=== PATIENT | male | born 1950 ===

== ENCOUNTER 2019-06-23 11:57 | Inpatient (IN) | payer MEDICARE ==
[~2019-06-23] VITALS: Ht 185.4 cm; Wt 87.2 kg
[~2019-06-23 11:57] MED LIST: ALPR.5 PO; ALPR1; ARIP20 PO; Abilify2 MG PO; CLON.5 PO; Carbidopa-Levo1 EAC8 PO; DOCSEN PO; DONE5 PO; DULO60 PO; GABA300 PO; GLIP10 PO; INVOKANA100 MG PO; LISI10 PO; LISI5 PO; MELOXICAM PO; METF500 PO; METH10 PO; MORP30ER PO; PARO30 PO; PYRI100 PO; SITA25T2 PO; TIOT18 INH; TRAZ100 PO; TRAZ50 PO; TRIHEXYPHENIDYL PO
[2019-06-23 12:36] LABS: BASOPHILS ABSOLUTE AUTO 0.06 K/mm3 (0.00-0.23); BASOPHILS PERCENT AUTO 0 % (0-2); EOSINOPHILS PERCENT AUTO 0 % (0-6); Hematocrit 51.5 % (37.0-53.0); IMMATURE GRAN ABSOLUTE AUTO 0.05 K/mm3 (0.00-0.10); IMMATURE GRAN PERCENT AUTO 0 % (0-1); LYMPHOCYTES ABSOLUTE AUTO 0.73 K/mm3 (0.84-5.20); LYMPHOCYTES PERCENT AUTO 5 % (21-46); MONOCYTES ABSOLUTE AUTO 0.73 K/mm3 (0.16-1.47); MONOCYTES PERCENT AUTO 5 % (4-13); Mean Corpuscular HGB 28.6 pg (26.0-34.0); Mean Corpuscular HGB Conc 31.1 g/dL (31.5-36.5); Mean Corpuscular Volume 92 fL (80-100); NEUTROPHILS ABSOLUTE AUTO 14.15 K/mm3 (1.96-9.15); NEUTROPHILS PERCENT AUTO 90 % (41-73); Platelet Count 289 K/mm3 (150-400); RDW Coefficient Variation 13.5 % (11.7-14.2); RDW Standard Deviation 46.1 fL (35.1-46.3); White Blood Cell Count 15.72 K/mm3 (4.00-11.30)
[2019-06-23 12:54] LABS: Alanine Aminotransfer (ALT/SGP 21 U/L (12-78); Albumin, Blood 2.8 g/dL (3.4-5.0); Albumin/Globulin Ratio 0.5 (0.8-1.8); Alk Phos 101 U/L (50-136); Anion Gap 15 mmol/L (6-16); Aspartate Aminotrans (AST/SGOT 74 U/L (12-37); Bilirubin, Total 1.4 mg/dL (0.1-1.0); Blood Urea Nitrogen 26 mg/dL (8-24); Bun/Creatinine Ratio 29.8 (12.0-20.0); CO2, Blood 21 mmol/L (21-32); Calcium, Blood 9.5 mg/dL (8.5-10.1); Chloride, Blood 97 mmol/L (98-108); Creatinine, Blood 0.87 mg/dL (0.60-1.20); Glomerular Filtration Rate >60 (60-); Glucose, Blood 126 mg/dL (70-99); Potassium, Blood 4.3 mmol/L (3.5-5.5); Sodium, Blood 133 mmol/L (136-145); Total Protein, Blood 8.8 g/dL (6.4-8.2)
[2019-06-23 13:20] LABS: Source, Urine Clean Catch
[2019-06-23 13:32] LABS: Bilirubin, Urine Neg (Neg); Blood, Urine 2+ (Neg); Glucose Qualitative, Urine 4+ (Neg); Ketones, Urine 4+ (Neg); Leukocyte Esterase, Urine 2+ (Neg); Nitrite, Urine Pos (Neg); Protein, Urine 2+ (Neg); Specific Gravity, Urine 1.015 (1.003-1.022); Urobilinogen, Urine NORM (Normal)
[2019-06-23 13:44] LABS: Appearance, Urine Hazy (Clear); Color, Urine Yellow (P-Yellow)
[2019-06-23 13:47] LABS: Red Blood Cells, Urine 0-2 /hpf (0-2); Squamous Epithelial Cells Rare /hpf (Few)
[2019-06-23 13:49] LABS: Bacteria Rare /hpf
[2019-06-23] MEDS ORDERED: Prinivil10 MG PO (13:57)
[2019-06-23] MEDS ORDERED: VITAMIN B PO (13:57)
[2019-06-23] MEDS ORDERED: ARIP10 PO (13:57)
[2019-06-23] MEDS ORDERED: JARDIANCE25 MG PO (13:58)
[2019-06-23] MEDS ORDERED: Citalopram HBr20 MG PO (13:58)
[2019-06-23] MEDS ORDERED: DONE5 PO (13:59)
[2019-06-23] MEDS ORDERED: TRAZ50 PO (13:59)
[2019-06-23] MEDS ORDERED: ONE DAILY FOR1 EAC1 PO (13:59)
[2019-06-23] MEDS ORDERED: CLON.5 PO (13:59)
[2019-06-23] MEDS ORDERED: MELO7.5 PO (13:59)
[2019-06-23] MEDS ORDERED: PRAM.5 PO (14:00)
[2019-06-23] MEDS ORDERED: POTCHL20ER PO (14:00)
[2019-06-23] MEDS ORDERED: SINEMET 25-1001 EACH PO (14:01)
[2019-06-23] MEDS ORDERED: TIOT18 INH (14:01)
[2019-06-23] MEDS ORDERED: Nortriptyline H50 MG PO (14:01)
[2019-06-23] MEDS ORDERED: Janumet 50-5001 EACH PO (14:01)
[2019-06-23] MEDS ORDERED: MORP30ER PO (14:01)
[2019-06-23] MEDS ORDERED: SENN187 PO (14:02)
[2019-06-23] MEDS ORDERED: GABA300 PO (14:02)
[2019-06-23] MEDS ORDERED: ALPR1 PO (14:02)
[2019-06-23 18:15] LABS: International Normalized Ratio 1.34; Prothrombin Time Results 13.8 Sec (9.7-11.5)
--- NOTE | 2019-06-23 18:45 | NUR ---
REPORT FROM [facility] AN. IN ER.
--- NOTE | 2019-06-23 18:55 | NUR ---
PT TO ROOM PCU 15 VIA STRETCHER. PT ABLE TO STAND AND SIT ON NEW BED. PT ALERT AND ORIENTED. SPOUSE TO ROOM WITH PT. VSS. ONCOMING RN TO DO PT ADMIT.
--- NOTE | 2019-06-24 03:53 | NUR ---
PT BP STABLE; HR 126-140; TOUCHING 150 WHEN AMBULATING TO BATHROOM; PROVIDER NOTIFIED; NEW ORDER FOR NS 500ML GIVEN
[2019-06-24 05:04] LABS: BASOPHILS ABSOLUTE AUTO 0.04 K/mm3 (0.00-0.23); BASOPHILS PERCENT AUTO 0 % (0-2); EOSINOPHILS PERCENT AUTO 0 % (0-6); Hemoglobin 14.9 g/dL (13.5-17.5); IMMATURE GRAN ABSOLUTE AUTO 0.07 K/mm3 (0.00-0.10); IMMATURE GRAN PERCENT AUTO 0 % (0-1); LYMPHOCYTES ABSOLUTE AUTO 1.47 K/mm3 (0.84-5.20); LYMPHOCYTES PERCENT AUTO 9 % (21-46); MONOCYTES ABSOLUTE AUTO 1.01 K/mm3 (0.16-1.47); MONOCYTES PERCENT AUTO 6 % (4-13); Mean Corpuscular HGB 28.8 pg (26.0-34.0); Mean Corpuscular HGB Conc 31.7 g/dL (31.5-36.5); Mean Corpuscular Volume 91 fL (80-100); Mean Platelet Volume 10.1 fL (9.1-12.4); NEUTROPHILS ABSOLUTE AUTO 14.48 K/mm3 (1.96-9.15); NEUTROPHILS PERCENT AUTO 85 % (41-73); Platelet Count 253 K/mm3 (150-400); RDW Coefficient Variation 13.8 % (11.7-14.2); RDW Standard Deviation 46.2 fL (35.1-46.3); Red Blood Cell Count 5.18 M/mm3 (4.30-5.90); White Blood Cell Count 17.07 K/mm3 (4.00-11.30)
[2019-06-24 05:21] LABS: Anion Gap 12 mmol/L (6-16); Blood Urea Nitrogen 27 mg/dL (8-24); CO2, Blood 22 mmol/L (21-32); Chloride, Blood 96 mmol/L (98-108); Creatinine, Blood 0.82 mg/dL (0.60-1.20); Glomerular Filtration Rate >60 (60-); Glucose, Blood 126 mg/dL (70-99); Potassium, Blood 4.6 mmol/L (3.5-5.5); Sodium, Blood 130 mmol/L (136-145)
--- NOTE | 2019-06-24 07:54 | NUR ---
SHIFT SUMMARY PT A&O; PT ON RA O2 SATS >93; PT DENIES CHEST PAIN; C/O UPPER QUADRANT PAIN; PT HR CONSISTENTLY 120'S TO 130'S; PT NPO CURRENTLY FOR CT GUIDED ABSCESS DRAINAGE; CALL LIGHT IN REACH; BED IN LOWEST POSITION; REPORT GIVEN TO DAY SHIFT RN
--- NOTE | 2019-06-24 11:34 | NUR ---
CT QUIDED DRAIN PT RETURNED FROM CT. AWAKE AND ALERT. EXPRESSED [id number] WITH THE EXPERIENCE. LEFT POSTERIOR BACK IS A DRAIN LINE ATACHED TO A COLLECTION BAG. NO FLUID IN TUBING YET. VSS. AT BEDSIDE. CONTINUE POT.
[2019-06-24 14:07] LABS: BASOPHILS ABSOLUTE AUTO 0.06 K/mm3 (0.00-0.23); BASOPHILS PERCENT AUTO 0 % (0-2); EOSINOPHILS PERCENT AUTO 0 % (0-6); Hematocrit 47.2 % (37.0-53.0); IMMATURE GRAN ABSOLUTE AUTO 0.15 K/mm3 (0.00-0.10); IMMATURE GRAN PERCENT AUTO 1 % (0-1); LYMPHOCYTES ABSOLUTE AUTO 1.03 K/mm3 (0.84-5.20); LYMPHOCYTES PERCENT AUTO 5 % (21-46); MONOCYTES ABSOLUTE AUTO 1.47 K/mm3 (0.16-1.47); MONOCYTES PERCENT AUTO 7 % (4-13); Mean Corpuscular HGB 28.6 pg (26.0-34.0); Mean Corpuscular HGB Conc 31.8 g/dL (31.5-36.5); Mean Corpuscular Volume 90 fL (80-100); Mean Platelet Volume 9.7 fL (9.1-12.4); NEUTROPHILS ABSOLUTE AUTO 17.23 K/mm3 (1.96-9.15); NEUTROPHILS PERCENT AUTO 86 % (41-73); Platelet Count 246 K/mm3 (150-400); RDW Coefficient Variation 13.7 % (11.7-14.2); RDW Standard Deviation 45.8 fL (35.1-46.3); Red Blood Cell Count 5.25 M/mm3 (4.30-5.90); White Blood Cell Count 19.94 K/mm3 (4.00-11.30)
--- NOTE | 2019-06-24 15:10 | NUR ---
echocardiogram complete
--- NOTE | 2019-06-24 15:26 | NUR ---
LEFT POSTERIOR BACK DRAIN DRAIN BAG NOTED TO HAVE BROWNISH,RED THICK CHUNKY FLID DRAINING FROM HIS BACK. PT VERY SURPRISED AT THE LOOK OF THE FLUID. CONTINUE POT.
--- NOTE | 2019-06-25 02:28 | NUR ---
06/24/19 PT HEART RATE 128; DENIES CHEST PAIN OR SOB.
[2019-06-25 03:46] LABS: BASOPHILS ABSOLUTE AUTO 0.05 K/mm3 (0.00-0.23); BASOPHILS PERCENT AUTO 0 % (0-2); EOSINOPHILS PERCENT AUTO 0 % (0-6); Hematocrit 40.5 % (37.0-53.0); Hemoglobin 13.2 g/dL (13.5-17.5); IMMATURE GRAN ABSOLUTE AUTO 0.15 K/mm3 (0.00-0.10); IMMATURE GRAN PERCENT AUTO 1 % (0-1); LYMPHOCYTES ABSOLUTE AUTO 1.04 K/mm3 (0.84-5.20); LYMPHOCYTES PERCENT AUTO 5 % (21-46); MONOCYTES ABSOLUTE AUTO 1.33 K/mm3 (0.16-1.47); MONOCYTES PERCENT AUTO 6 % (4-13); Mean Corpuscular HGB 28.7 pg (26.0-34.0); Mean Corpuscular HGB Conc 32.6 g/dL (31.5-36.5); Mean Corpuscular Volume 88 fL (80-100); Mean Platelet Volume 9.8 fL (9.1-12.4); NEUTROPHILS PERCENT AUTO 88 % (41-73); Platelet Count 250 K/mm3 (150-400); RDW Coefficient Variation 13.6 % (11.7-14.2); RDW Standard Deviation 43.8 fL (35.1-46.3); White Blood Cell Count 21.87 K/mm3 (4.00-11.30)
[2019-06-25 04:07] LABS: Albumin, Blood 1.9 g/dL (3.4-5.0); Anion Gap 9 mmol/L (6-16); Blood Urea Nitrogen 22 mg/dL (8-24); Bun/Creatinine Ratio 37.3 (12.0-20.0); CO2, Blood 23 mmol/L (21-32); Calcium, Blood 8.4 mg/dL (8.5-10.1); Chloride, Blood 103 mmol/L (98-108); Creatinine, Blood 0.59 mg/dL (0.60-1.20); Glomerular Filtration Rate >60 (60-); Glucose, Blood 118 mg/dL (70-99); Potassium, Blood 4.1 mmol/L (3.5-5.5); Sodium, Blood 135 mmol/L (136-145)
--- NOTE | 2019-06-25 06:03 | NUR ---
SHIFT SUMMARY: 68 Y/O MALE RESTED COMFORTABLY ALL SHIFT; DENIES PAIN OR NAUSEA; NEPHROSTOMY DRAIN LEFT FLANK DRY AND INTACT WITH OUTPUT 20ML BROWN FLUID; ALERT AND ORIENTED X 4; BED LOW POSITION WITH CALL LIGHT AT SIDE.
--- NOTE | 2019-06-25 12:46 | NUR ---
Dr. Norton called and confirmed that it is okay to give lovenox SC.
--- NOTE | 2019-06-25 18:20 | NUR ---
Pt called this RN into room complaining of new onset R abd tenderness to the R outer abd. upon palp, pt guarding and tender to abd. Pt states "I feel bloated". Pt's abdomen is soft to palp. Dr. Augustin called and notified of changes. no new orders recieved at this time. Per dr. auugstin, manage pain with medications in emar and continue to monitor. if pain persists, call back (per dr. augustin).
--- NOTE | 2019-06-25 19:37 | NUR ---
Shift Summary See previous notes for acute changes. Overall, pt VSS, breathing even and unlabored. Voiding independantly into urinal at bedside. Pt with large, formed BM this morning. Pt resting on and off throughout the day. Family at bedside at times. Pt recieved abx IV per orders. Pt remains alert and oriented with some confusion upon waking from naps which is baseline per pt's .
--- NOTE | 2019-06-25 20:48 | NUR ---
PT C/O MID ABD PAIN WITH SLIGHT TOUCH; PT APPEARS MORE DISTENDED TONIGHT, SCANT DRAINAGE FROM LEFT FLANK NEPHROSTOMY--5ML CLEAR YELLOW FLUID NOTED; DENIES PAIN TO LEFT/RIGHT SIDES OF ABDOMEN, SLIGHTLY ANXIOUS DURING ASSESSMENT; HEART RATE 130 PER TELEMETRY.
[2019-06-26 04:27] LABS: BASOPHILS ABSOLUTE AUTO 0.03 K/mm3 (0.00-0.23); BASOPHILS PERCENT AUTO 0 % (0-2); EOSINOPHILS PERCENT AUTO 0 % (0-6); Hematocrit 41.8 % (37.0-53.0); Hemoglobin 13.4 g/dL (13.5-17.5); IMMATURE GRAN ABSOLUTE AUTO 0.14 K/mm3 (0.00-0.10); IMMATURE GRAN PERCENT AUTO 1 % (0-1); LYMPHOCYTES PERCENT AUTO 5 % (21-46); MONOCYTES ABSOLUTE AUTO 0.53 K/mm3 (0.16-1.47); MONOCYTES PERCENT AUTO 3 % (4-13); Mean Corpuscular HGB 28.1 pg (26.0-34.0); Mean Corpuscular HGB Conc 32.1 g/dL (31.5-36.5); Mean Corpuscular Volume 88 fL (80-100); Mean Platelet Volume 9.4 fL (9.1-12.4); NEUTROPHILS ABSOLUTE AUTO 16.52 K/mm3 (1.96-9.15); NEUTROPHILS PERCENT AUTO 91 % (41-73); Platelet Count 202 K/mm3 (150-400); RDW Coefficient Variation 13.5 % (11.7-14.2); RDW Standard Deviation 43.9 fL (35.1-46.3); Red Blood Cell Count 4.77 M/mm3 (4.30-5.90); White Blood Cell Count 18.12 K/mm3 (4.00-11.30)
--- NOTE | 2019-06-26 04:33 | NUR ---
SHIFT SUMMARY: 68 Y/O MALE RESTED COMFORTABLY ALL SHIFT; NPO SINCE MIDNIGHT PENDING RESULTS OF CT SCAN PERFORMED LAST PM FOR MD TO REVIEW; STILL C/O MID ABDOMINAL TENDERNESS AND FULLNESS; BM X 1 LOOSE BROWN X 1 THIS SHIFT; DENIES NEED FOR PAIN OR NAUSEA MEDS; LEFT FLANK NEPHROSTOMY TUBE HAS SEROSANGINUOUS FLUID IN BAG NOTED; ALERT AND ORIENTED X 4; UP PEER SELF TO BATHROOM AND BACK; CHEERFUL; BED LOW POSITION WITH CALL LIGHT AT SIDE.
[2019-06-26 04:48] LABS: Albumin, Blood 1.9 g/dL (3.4-5.0); Anion Gap 9 mmol/L (6-16); Blood Urea Nitrogen 14 mg/dL (8-24); Bun/Creatinine Ratio 27.7 (12.0-20.0); CO2, Blood 24 mmol/L (21-32); Calcium, Blood 8.5 mg/dL (8.5-10.1); Chloride, Blood 104 mmol/L (98-108); Creatinine, Blood 0.51 mg/dL (0.60-1.20); Glomerular Filtration Rate >60 (60-); Glucose, Blood 130 mg/dL (70-99); Phosphorus, Blood 1.5 mg/dL (2.5-4.9); Potassium, Blood 3.4 mmol/L (3.5-5.5); Sodium, Blood 137 mmol/L (136-145)
--- NOTE | 2019-06-26 07:45 | NUR ---
Assumed care Pt alert and oriented, sitting in bed, VSS. Pt had CT w Contrast last night d/t persistant abd pain. Per Nurse Notify order, pt is NPO until provider clears CT results with pt. Pt with at bedside this AM and update on events of previous shift given. Pt and pt's expressed concerns to this RN regarding plan of care and expressed minor frustration related to "lack of communication that we get". This RN affirmed pt and pt's of frustrations expressed and reassured them of plan of care. Pt denies tenderness to abd at this time. Denies acute pain, c/o chronic pain to R shoulder but denies need for pain medication at this time. Warm blanket provided to pt. See shift assessment for detailed systems assessment. Will continue to monitor
--- NOTE | 2019-06-26 18:31 | NUR ---
Shift Summary No acute changes this shift. Pt tolerating pain this shift, more energetic and involved in care today. Dr. Augustin and Dr. Nice into see pt this shift, continuation of current plan of care to be follow per both providers. ABX infusing, diet is Cl Liquid. Abd remains distented, soft, nontender. Little drainage from L flank drain this shift. Pt independantly able to use urinal at bedside. Alert and oriented, VSS. NS at 75. involved in care No acute changes this shift.
[2019-06-27 04:39] LABS: BASOPHILS ABSOLUTE AUTO 0.03 K/mm3 (0.00-0.23); BASOPHILS PERCENT AUTO 0 % (0-2); EOSINOPHILS ABSOLUTE AUTO 0.03 K/mm3 (0.00-0.68); EOSINOPHILS PERCENT AUTO 0 % (0-6); Hematocrit 42.5 % (37.0-53.0); Hemoglobin 13.4 g/dL (13.5-17.5); IMMATURE GRAN ABSOLUTE AUTO 0.13 K/mm3 (0.00-0.10); IMMATURE GRAN PERCENT AUTO 1 % (0-1); LYMPHOCYTES ABSOLUTE AUTO 0.77 K/mm3 (0.84-5.20); LYMPHOCYTES PERCENT AUTO 4 % (21-46); MONOCYTES ABSOLUTE AUTO 0.87 K/mm3 (0.16-1.47); MONOCYTES PERCENT AUTO 5 % (4-13); Mean Corpuscular HGB Conc 31.5 g/dL (31.5-36.5); Mean Corpuscular Volume 89 fL (80-100); Mean Platelet Volume 9.1 fL (9.1-12.4); NEUTROPHILS ABSOLUTE AUTO 17.67 K/mm3 (1.96-9.15); NEUTROPHILS PERCENT AUTO 91 % (41-73); Platelet Count 231 K/mm3 (150-400); RDW Coefficient Variation 13.7 % (11.7-14.2); RDW Standard Deviation 44.8 fL (35.1-46.3); Red Blood Cell Count 4.78 M/mm3 (4.30-5.90)
[2019-06-27 04:58] LABS: Albumin, Blood 1.8 g/dL (3.4-5.0); Anion Gap 8 mmol/L (6-16); Blood Urea Nitrogen 13 mg/dL (8-24); Bun/Creatinine Ratio 24.8 (12.0-20.0); CO2, Blood 26 mmol/L (21-32); Calcium, Blood 8.4 mg/dL (8.5-10.1); Chloride, Blood 104 mmol/L (98-108); Creatinine, Blood 0.52 mg/dL (0.60-1.20); Glomerular Filtration Rate >60 (60-); Glucose, Blood 149 mg/dL (70-99); Potassium, Blood 3.6 mmol/L (3.5-5.5); Sodium, Blood 138 mmol/L (136-145)
--- NOTE | 2019-06-27 06:20 | NUR ---
SHIFT SUMMARY: PATIENT DID WELL THIS SHIFT, SLEPT WELL, VSS. NO COMPLAINTS THIS SHIFT. CALL LIGHT WITHIN REACH, VSS. DRAIN IS VERY SLOW TO DRAIN, SEE CHART. SITE APPEARS UNCHANGED, PATIENT STATES NO CHANGE IN SENSATION/PAIN AT LEFT FLANK. CALL LIGHT WITHIN REACH, BED LOW AND LOCKED, MONITORING CLOSELY.
--- NOTE | 2019-06-27 17:56 | NUR ---
SHIFT SUMMARY PT A&Ox4. ANXIOUS AT TIMES, DENIES NEEDS FOR XANAX T/O SHIFT. PT COOPERATIVE WITH CARE DURING SHIFT. PT RESTING IN BED DURING SHIFT, UP IN ROOM IND. SPOUSE AT BEDSIDE THIS AM. PT REPORTS CHRONIC SHOULDER PAIN, MEDICATED x1 WITH SCHEDULED MORPHINE WITH POSITIVE RESULTS. PT DENIES NASUEA, SOB AND LIGHTHEADEDNESS AND DIZZINESS. PT RECEIVING IV ANTIBIOTICS. DRAIN TO LEFT FLANK PATENT AND DRAINING. BP TRENDING UP, HR ELEVATED; NOTIIFED DR GABRIEL DR TO PLACE ORDERS. OTHER VSS. CT COMPLETED THIS AFTERNOON. NO OTHER ACUTE CHANGES NOTED DURING SHIFT. WILL CONTINUE TO MONITOR. UNTIL REPORT GIVEN TO ONCOMING RN.
[2019-06-28 04:10] LABS: BASOPHILS ABSOLUTE AUTO 0.05 K/mm3 (0.00-0.23); BASOPHILS PERCENT AUTO 0 % (0-2); EOSINOPHILS ABSOLUTE AUTO 0.12 K/mm3 (0.00-0.68); EOSINOPHILS PERCENT AUTO 1 % (0-6); Hematocrit 42.9 % (37.0-53.0); Hemoglobin 13.4 g/dL (13.5-17.5); IMMATURE GRAN ABSOLUTE AUTO 0.14 K/mm3 (0.00-0.10); IMMATURE GRAN PERCENT AUTO 1 % (0-1); LYMPHOCYTES ABSOLUTE AUTO 1.36 K/mm3 (0.84-5.20); LYMPHOCYTES PERCENT AUTO 7 % (21-46); MONOCYTES ABSOLUTE AUTO 1.21 K/mm3 (0.16-1.47); MONOCYTES PERCENT AUTO 6 % (4-13); Mean Corpuscular HGB 27.7 pg (26.0-34.0); Mean Corpuscular HGB Conc 31.2 g/dL (31.5-36.5); Mean Corpuscular Volume 89 fL (80-100); Mean Platelet Volume 9.5 fL (9.1-12.4); NEUTROPHILS ABSOLUTE AUTO 16.11 K/mm3 (1.96-9.15); NEUTROPHILS PERCENT AUTO 85 % (41-73); Platelet Count 223 K/mm3 (150-400); RDW Coefficient Variation 13.9 % (11.7-14.2); RDW Standard Deviation 45.1 fL (35.1-46.3); Red Blood Cell Count 4.84 M/mm3 (4.30-5.90); White Blood Cell Count 18.99 K/mm3 (4.00-11.30)
[2019-06-28 04:31] LABS: Alanine Aminotransfer (ALT/SGP 31 U/L (12-78); Albumin, Blood 1.7 g/dL (3.4-5.0); Albumin/Globulin Ratio 0.4 (0.8-1.8); Alk Phos 85 U/L (50-136); Anion Gap 7 mmol/L (6-16); Aspartate Aminotrans (AST/SGOT 85 U/L (12-37); Bilirubin, Total 0.7 mg/dL (0.1-1.0); Blood Urea Nitrogen 10 mg/dL (8-24); Bun/Creatinine Ratio 19.3 (12.0-20.0); CO2, Blood 28 mmol/L (21-32); Calcium, Blood 8.3 mg/dL (8.5-10.1); Chloride, Blood 104 mmol/L (98-108); Creatinine, Blood 0.52 mg/dL (0.60-1.20); Globulin, Blood 4.7 g/dL (2.2-4.0); Glomerular Filtration Rate >60 (60-); Glucose, Blood 159 mg/dL (70-99); Percent Saturation 24.8 % (20.0-50.0); Potassium, Blood 3.4 mmol/L (3.5-5.5); Sodium, Blood 139 mmol/L (136-145); Total Protein, Blood 6.4 g/dL (6.4-8.2)
--- NOTE | 2019-06-28 07:20 | NUR ---
SHIFT SUMMARY PATIENT PLEASENT AND COOPERATIVE THROUGHOUT THE NIGHT. PATIENT APPEARED TO NAP ON AND OFF THROUGHOUT THE NIGHT. CURRENT PAIN REGIMEN APPEARS TO BE WORKING WELL AT THIS TIME. NO DRAINAGE NOTED FROM DRAIN LAST NIGHT. VITAL SIGNS CHARTED. REPORT GIVEN TO ONCOMING RN.
--- NOTE | 2019-06-28 15:21 | NUR ---
DR ECHEVARRIA AT BEDSIDE, PIGTAIL DRAIN REMOVED AND GAUZE AND TAPE PLACED OVER SITE.
--- NOTE | 2019-06-28 16:37 | NUR ---
SHIFT SUMMARY PT A&Ox4, CALM AND COOPERTIVE WITH CARE. PT UP IND IN ROOM. PT RERORTS CHRONIC "DISCOMFORT" IN SHOULDER, MEDICATED WITH SCHEDULE MORPHINE WITH POSITIVE RESULTS. PT DENIES SOB AND NASUEA. PT CONTINUES WITH CLEAR LIQUID DIET, STATES "I DONT THINK I COULD TOLERATE MORE". PT HAD CT WITH ORAL CONTRAST THIS AM. DRAIN TO LEFT FLANK REMOVED BY DR ECHEVARRIA AT BEDSIDE. ELEVATED BP AND HR, OTHER VSS. PT RECEIVING IV ANTIBIOTICS. WILL CONTINUE TO MONITOR UNTIL REPORT GIVEN TO ONCOMING RN.
[2019-06-29 04:07] LABS: BASOPHILS ABSOLUTE AUTO 0.06 K/mm3 (0.00-0.23); BASOPHILS PERCENT AUTO 0 % (0-2); EOSINOPHILS ABSOLUTE AUTO 0.08 K/mm3 (0.00-0.68); EOSINOPHILS PERCENT AUTO 0 % (0-6); Hematocrit 42.8 % (37.0-53.0); Hemoglobin 13.3 g/dL (13.5-17.5); IMMATURE GRAN ABSOLUTE AUTO 0.21 K/mm3 (0.00-0.10); IMMATURE GRAN PERCENT AUTO 1 % (0-1); LYMPHOCYTES ABSOLUTE AUTO 1.13 K/mm3 (0.84-5.20); LYMPHOCYTES PERCENT AUTO 6 % (21-46); MONOCYTES ABSOLUTE AUTO 1.25 K/mm3 (0.16-1.47); MONOCYTES PERCENT AUTO 7 % (4-13); Mean Corpuscular HGB 27.9 pg (26.0-34.0); Mean Corpuscular HGB Conc 31.1 g/dL (31.5-36.5); Mean Corpuscular Volume 90 fL (80-100); Mean Platelet Volume 10.3 fL (9.1-12.4); NEUTROPHILS ABSOLUTE AUTO 16.43 K/mm3 (1.96-9.15); NEUTROPHILS PERCENT AUTO 86 % (41-73); Platelet Count 224 K/mm3 (150-400); RDW Coefficient Variation 14.3 % (11.7-14.2); RDW Standard Deviation 47.2 fL (35.1-46.3); Red Blood Cell Count 4.76 M/mm3 (4.30-5.90); White Blood Cell Count 19.16 K/mm3 (4.00-11.30)
[2019-06-29 04:32] LABS: Alanine Aminotransfer (ALT/SGP 29 U/L (12-78); Albumin, Blood 1.6 g/dL (3.4-5.0); Albumin/Globulin Ratio 0.4 (0.8-1.8); Alk Phos 81 U/L (50-136); Anion Gap 7 mmol/L (6-16); Aspartate Aminotrans (AST/SGOT 77 U/L (12-37); Bilirubin, Total 0.8 mg/dL (0.1-1.0); Blood Urea Nitrogen 9 mg/dL (8-24); Bun/Creatinine Ratio 19.4 (12.0-20.0); CO2, Blood 26 mmol/L (21-32); Calcium, Blood 7.7 mg/dL (8.5-10.1); Chloride, Blood 102 mmol/L (98-108); Creatinine, Blood 0.46 mg/dL (0.60-1.20); Globulin, Blood 4.5 g/dL (2.2-4.0); Glomerular Filtration Rate >60 (60-); Glucose, Blood 164 mg/dL (70-99); Sodium, Blood 135 mmol/L (136-145); Total Protein, Blood 6.1 g/dL (6.4-8.2)
--- NOTE | 2019-06-29 07:42 | NUR ---
SHIFT SUMMARY PATIENT PLEASENT AND COOPERATIVE THROUGHOUT THE NIGHT. PATIENT WAKE MOST OF THE NIGHT BUT DENIED THE NEED FOR ANY MEDICATIONS. STATED HE WAS GOING TO TRY SLEEP WITHOUT TAKING ANYTHING. PATIENT APPEARED TO OCCATIONALLY NAP ON AND OFF LAST NIGHT. IV FLUIDS AND ABX RUNNING PER ORDERS. VITAL SIGNS CAHRTED. REPORT GIVEN TO ONCOMING RN.
--- NOTE | 2019-06-30 00:19 | NUR ---
delightful alert and orintated pt, abdmn distended but loose and nontender, states it hurts at times but was not hurting when assessed and gently pressing on it did not cause pain, abx infusing slowly with no s/sx of infection or infiltration, took medication with no difficulty, rm air, room warm but no blankes per pt preference, call light in reach, states he had a bm today and has not had any issues urinating, ls clear, resting quietly in bed with eyes closed, looking forward to a chicken sandwich from home, promised to tell day nurse when it is brought in
--- NOTE | 2019-06-30 06:35 | NUR ---
accepted pain medication dispite not believing it would do any good, only brought pain down to a two from a four, still resting on bed with eyes closed, abdm still swollen but soft and nontender, call light in reach will continue to monitor and treat until share bsr with staff and pt
--- NOTE | 2019-06-30 09:14 | NUR ---
Dr. Genao here to see the pt.
--- NOTE | 2019-06-30 17:20 | NUR ---
Not awakened for blood sugar check, as he is finally sleeping. Will wait until a little later, as he requested to allow him to sleep.
--- NOTE | 2019-06-30 18:17 | NUR ---
Km called for his dinner tray around 6 pm, stated he woke up and wondered about dinner. He has a better appetite than earlier today. Seems to be tolerating the full liquid diet better than regular food.
--- NOTE | 2019-06-30 18:21 | NUR ---
summary Km has been lying in bed for most of the day, with occasional activity of walking independently to the bathroom for 2 bowel movements. States he has not measured his urine as he is having a BM at each time he voids in the toilet. Has declined all pain medication today, except that which was scheduled, states that it doesn't help the pain at all. His pain is at times in the left shoulder, but also has discomfort in the lower abdominal area, which he described more like pressure. Cheerful this evening after getting a nap this afternoon. One of his complaints this morning was that he had not slept in 4-5 days. Had a better appetite this evening as well, after his diet was changed to full liquid for lunch. Provided also a magic cup.
[2019-07-01 04:10] LABS: BASOPHILS ABSOLUTE AUTO 0.03 K/mm3 (0.00-0.23); BASOPHILS PERCENT AUTO 0 % (0-2); EOSINOPHILS ABSOLUTE AUTO 0.12 K/mm3 (0.00-0.68); EOSINOPHILS PERCENT AUTO 1 % (0-6); Hematocrit 39.6 % (37.0-53.0); Hemoglobin 12.5 g/dL (13.5-17.5); IMMATURE GRAN PERCENT AUTO 1 % (0-1); LYMPHOCYTES ABSOLUTE AUTO 1.55 K/mm3 (0.84-5.20); LYMPHOCYTES PERCENT AUTO 8 % (21-46); MONOCYTES ABSOLUTE AUTO 1.47 K/mm3 (0.16-1.47); MONOCYTES PERCENT AUTO 8 % (4-13); Mean Corpuscular HGB Conc 31.6 g/dL (31.5-36.5); Mean Corpuscular Volume 89 fL (80-100); Mean Platelet Volume 9.5 fL (9.1-12.4); NEUTROPHILS ABSOLUTE AUTO 16.33 K/mm3 (1.96-9.15); NEUTROPHILS PERCENT AUTO 83 % (41-73); Platelet Count 240 K/mm3 (150-400); RDW Coefficient Variation 14.6 % (11.7-14.2); RDW Standard Deviation 45.8 fL (35.1-46.3); Red Blood Cell Count 4.47 M/mm3 (4.30-5.90)
[2019-07-01 04:24] LABS: Anion Gap 7 mmol/L (6-16); Blood Urea Nitrogen 8 mg/dL (8-24); Bun/Creatinine Ratio 14.8 (12.0-20.0); CO2, Blood 29 mmol/L (21-32); Calcium, Blood 7.8 mg/dL (8.5-10.1); Chloride, Blood 103 mmol/L (98-108); Creatinine, Blood 0.54 mg/dL (0.60-1.20); Glomerular Filtration Rate >60 (60-); Glucose, Blood 180 mg/dL (70-99); Potassium, Blood 3.2 mmol/L (3.5-5.5); Sodium, Blood 139 mmol/L (136-145)
--- NOTE | 2019-07-01 05:37 | NUR ---
SHIFT SUMMARY PT HAS REMAINED AOX4 THROUGHOUT SHIFT. VSS. PLEASANT AND COOPERATIVE WITH CARE. CONTINUES TO AMBULATE INDEPENDENTLY IN THE ROOM. PT APPEARED TO HAVE RESTED THROUGHOUT MUCH OF THE NIGHT WHEN ROUNDED ON. PT REPORTS THAT HE SLEPT FOR AT LEAST FOUR HOURS AND IS FEELING BETTER THIS AM. PT CONTINUES TO REPORT SOME PRESSURE-TYPE DISCOMFORT IN HIS ABDOMEN THAT HAS NOT CHANGED MUCH FROM EARLIER IN THE DAY. MEDICATED ONCE FOR PAIN THAT DECREASED WITH ORDERED MEDICATIONS. NO OTHER CHANGES NOTED FROM INITIAL ASSESSMENT. WILL CONTINUE TO MONITOR AND REPORT TO ONCOMING SHIFT RN. BED IN LOW POSITION, CALL LIGHT IN REACH.
--- NOTE | 2019-07-01 08:46 | NUR ---
AM NOTE... ASSUMED CARE OF PT APROX 0700. PT IS A&Ox4 AND SBA IN THE ROOM. PT IS C/O OF FEELING "VERY WEAK" TODAY. PT'S VS STABLE, PT IS ST AT 112. PT'S ABD IS DISTENDED AND SLIGHTLY TENDER TO PALP. BT HYPOACTIVE. L/S COARSE WHEEZES T/O, PT IS ON RA. PT'S AT THE BEDSIDE. PT STATED HE HAS A ACHY "FULLNESS" OR PRESSURE IN HIS ABD AREA. CALL LIGHT IN REACH, BED IS LOCKED AND LOW WILL CONTINUE TO MONITOR.
--- NOTE | 2019-07-01 17:57 | NUR ---
SHIFT SUMMARY. NO ACUTE NEGATIVE CHANGES NOTED THIS SHIFT. PT'S VS HAVE BEEN STABLE. PT'S BROUGHT IN SUBWAY SANDWICH FOR LUNCH WHICH THE PT ATE APROX HALF OF IT AND TOLERATED THIS WELL. PT HAS BEEN UP TO THE BATHROOM IND. PT'S HAS BEEN AT THE BEDSIDE MOST OF THE DAY. CALL LIGHT IN REACH, BED IS LOCKED AND LOW WILL CONTINUE TO MONITOR UNTIL REPORT IS GIVEN TO ONCOMING RN.
[2019-07-02 05:19] LABS: BASOPHILS ABSOLUTE AUTO 0.04 K/mm3 (0.00-0.23); BASOPHILS PERCENT AUTO 0 % (0-2); EOSINOPHILS ABSOLUTE AUTO 0.15 K/mm3 (0.00-0.68); EOSINOPHILS PERCENT AUTO 1 % (0-6); Hematocrit 41.5 % (37.0-53.0); IMMATURE GRAN ABSOLUTE AUTO 0.19 K/mm3 (0.00-0.10); IMMATURE GRAN PERCENT AUTO 1 % (0-1); LYMPHOCYTES ABSOLUTE AUTO 1.68 K/mm3 (0.84-5.20); LYMPHOCYTES PERCENT AUTO 8 % (21-46); MONOCYTES ABSOLUTE AUTO 1.43 K/mm3 (0.16-1.47); MONOCYTES PERCENT AUTO 7 % (4-13); Mean Corpuscular HGB 27.8 pg (26.0-34.0); Mean Corpuscular HGB Conc 31.3 g/dL (31.5-36.5); Mean Corpuscular Volume 89 fL (80-100); Mean Platelet Volume 9.9 fL (9.1-12.4); NEUTROPHILS ABSOLUTE AUTO 17.58 K/mm3 (1.96-9.15); NEUTROPHILS PERCENT AUTO 83 % (41-73); Platelet Count 290 K/mm3 (150-400); RDW Coefficient Variation 14.7 % (11.7-14.2); RDW Standard Deviation 47.2 fL (35.1-46.3); Red Blood Cell Count 4.68 M/mm3 (4.30-5.90); White Blood Cell Count 21.07 K/mm3 (4.00-11.30)
[2019-07-02 05:39] LABS: Anion Gap 5 mmol/L (6-16); Blood Urea Nitrogen 10 mg/dL (8-24); Bun/Creatinine Ratio 16.5 (12.0-20.0); CO2, Blood 32 mmol/L (21-32); Calcium, Blood 8.1 mg/dL (8.5-10.1); Chloride, Blood 101 mmol/L (98-108); Creatinine, Blood 0.61 mg/dL (0.60-1.20); Glomerular Filtration Rate >60 (60-); Glucose, Blood 176 mg/dL (70-99); Magnesium, Blood 1.7 mg/dL (1.6-2.4); Potassium, Blood 3.1 mmol/L (3.5-5.5); Sodium, Blood 138 mmol/L (136-145)
--- NOTE | 2019-07-02 06:34 | NUR ---
SUMMARY CALL FROM PT @0400 C/O INABILITY TO USE R ARM.WITH CHECKING ON PT NOTED UNCOORDINATED USE OF R ARM. WEAKER THAN HIS GENERAL WEAKNESS. PT ABLE TO CAMERA PROTOTYPING ENGINEER, BUT PINKY AND RING FINGER TENDING TO CURL IN TOWARD PALM. 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 PT WITH NO FURTHER ACUTE CHANGES.DR BERGERON VERB PT NOT CANDIDATE FOR BLOOD THINNERS DUE TO LIVER MASS NOTED. CT REPORT SHOWS NO ACUTE INTRACRANIAL ABNORMALITY. PT VERB NO PAIN FOLLOWING SUBLIMAZE DOSING.
--- NOTE | 2019-07-02 07:45 | NUR ---
AM NOTE... ASSUMED CARE OF PT APROX 0700. PT IS A&Ox4 AND IND IN THE ROOM. PT WAS ADMITTED FOR ABD ABCESSES. PT IS ON ABX THERAPY FOR THIS. PT'S VS HAVE BEEN STABLE. PT IS IN NSR/ST. PT HAS 1+ PITTING EDEMA TO HIS BLE, NONPITTING TO HIS ABD/TORSO. THIS HAS INCREASED SINCE YESTERDAY. L/S INSP COARSENESS/WHEEZES. PT IS ON RA WITH O2 SATS >91%. BT PRESENT AND HYPOACTIVE, ABD IS MOD DISTENDED AND A LITTLE TENDER TO PALP. CALL LIGHT IN REACH, WILL CONTINUE TO MONITOR.
--- NOTE | 2019-07-02 17:06 | NUR ---
SHIFT SUMMARY... NO ACUTE NEGATIVE CHANGES NOTED THIS SHIFT. PT'S VS HAVE BEEN STABLE. PT HAS BEEN MEDICATED FOR PAIN PRN PER EMAR. PT WORKED WITH PT/OT TODAY AND WAS UP IN RECLINER CHAIR FOR APROX 2 HOURS. PT IS STILL HAVING DIFFICULTY USING HIS RIGHT HAND/ARM. PT'S AT THE BEDSIDE MOST OF THE SHIFT. PROVIDER ORDERED ABD MRI. PER PROVIDER PT ASKED TO WAIT UNTIL TOMORROW TO HAVE MRI DONE, IMAGING CALLED AND THIS WAS WORKED OUT. PER GUEST ROOM INSPECTOR PT'S MRI IS TO BE TOMORROW BEFORE 12. CALL LIGHT IN REACH, WILL CONTINUE TO MONITOR UNTIL REPORT IS GIVEN TO ONCOMING RN.
--- NOTE | 2019-07-02 21:40 | NUR ---
CARE ASSUMPTION PT A&O X4, CALM AND COOPERATIVE. VSS. MONITOR SHOWS ST 100-110's. LUNG SOUNDS CLEAR, DIM IN BASES. SPO2 > 92% ON RA. PT ABD TENDER & DISTENDED W/ REPORT OF 5/10 DULL ABD PAIN. PT ABD W/ NONPITTING EDEMA. TRACE EDEMA TO BLE. PT REPORTS R ARM WEAK W/ MINIMAL ROM. PT ABLE TO MINIMALLY LIFT R ARM OFF OF BED. PT DENIES ABILITY TO OPEN R HAND FULLY. PT UNABLE TO EXTEND PINKY FINGER AND R RING FINGER. PT DENIES PAIN, N&T IN R ARM. 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 PT REPORTS R ARM WEAKNESS TO HAVE STARTED "YESTERDAY OR LAST NIGHT" AND DENIES IMPROVEMENT OR WORSENING. WILL CONTINUE TO MONITOR AND PROVIDE CARE. WILL CONTINUE TO MONITOR AND PROVIDE CARE.
--- NOTE | 2019-07-03 00:30 | NUR ---
R LEG WEAKNESS UPON ASSESSMENT @ APPROX 0030, PT REPORTING "I CAN'T MOVE MY LEG." PT REFERRING TO R LEG. PT ABLE TO MINIMALLY WIGGLE TOES ON R LEG AND VERY WEAKLY AND MINIMALLY LIFT R LEG OFF OF BED. PT DENYING PAIN, NUMBNESS, OR TINGLING IN LEG. PT R ARM CONTINUES TO BE WEAK WELL W/ NO RETURN OF STRENGTH. WILL CONTINUE TO MONITOR.
--- NOTE | 2019-07-03 02:30 | NUR ---
R LEG PAIN PT REPORTING 10/10 R LEG PAIN DESCRIBING PAIN THROBBING. R LEG ELEVATED ON PILLOW W/ PT REPORT OF "OH THAT'S SO MUCH BETTER." PT RATING PAIN 3/10 AFTER ELEVATION. PRN FENTANYL THEN PROVIDED PER PT REQUEST/EMAR. PT REPORTING 1/10 R LEG PAIN AFTER PRN MEDICATION. WILL CONTINUE TO MONITOR AND PROVIDE CARE.
--- NOTE | 2019-07-03 05:51 | NUR ---
CALL TO MD / UPDATE RLE CALL TO MD ROBLES TO REPORT PT'S NEW ONSET RLE WEAKNESS. PT W/ PREVIOUS HEAD CT DONE /. MD ROBLES W/ NO ORDERS AT THIS TIME, STATING DAY SHIFT MD TO EVALUATE NEED FOR REPEAT SCAN &/OR POTENTIAL OUTPT NEUROLOGY CONSULT.
--- NOTE | 2019-07-03 06:51 | NUR ---
SHIFT SUMMARY PT CONTINUES TO BE A&O X4. VSS. MONITOR SHOWS SR-ST, HR 80's-110's. SPO2 > 92% ON RA UPON CARE ASSUMPTION. 2L NC APPLIED THIS SHIFT D/T SPO2 85% ON RA W/ SPO2 RETURN TO > 92%. PT W/ R ARM AND R LEG WEAKNESS, SEE PREVIOUS NOTES. ABD CONTINUES TO BE TENDER AND DISTENDED. WILL CONTINUE TO MONITOR AND PROVIDE CARE UNTIL REPORT OFF TO DAY SHIFT RN.
--- NOTE | 2019-07-03 08:20 | NUR ---
AM NOTE... ASSUMED CARE OF PT APROX 0700. PT IS A&Ox4. DURING THE NIGHT THE PT STARTED C/O OF RIGHT LEG WEAKNESS, PT WAS UNABLE TO MOVE HIS RIGHT LEG VERY MUCH AT ALL. PT IS ABLE TO WRIGGLE HIS TOES AND SLIGHTLY RAISE HIS LEG APROX 1/2 INCHES OFF OF THE BED. PT IS UNABLE TO MOVE HIS LEG SIDE TO SIDE AT THIS TIME. PT IS AGREEABLE TO BE ON BEDREST AT THIS TIME. PT'S RIGHT ARM IS STILL WEAK WELL. PT DENIES PAIN IN HIS ARM OR LEG AT THIS TIME. PT IS HYPOTENSIVE AT 97/61. PT DENIES CHEST PAIN/PRESSURE N/V OR INCREASED SOB. PT IS ON 2L NC PRN. CURRENTLY PT IS 94% ON 2 L NC. L/S CLEAR T/O DIM IN THE BASES. BT PRESENT AND HYPOACTIVE,ABD IS MOD DISTENDED AND SLIGHTLY TENDER TO TOUCH. PT HAS GENERALIZED EDEMA ALL OVER FROM TRACE TO 1+. WILL CONTINUE TO MONITOR.
[2019-07-03 09:05] LABS: BASOPHILS ABSOLUTE AUTO 0.04 K/mm3 (0.00-0.23); BASOPHILS PERCENT AUTO 0 % (0-2); EOSINOPHILS ABSOLUTE AUTO 0.03 K/mm3 (0.00-0.68); EOSINOPHILS PERCENT AUTO 0 % (0-6); Hematocrit 42.4 % (37.0-53.0); Hemoglobin 13.3 g/dL (13.5-17.5); IMMATURE GRAN ABSOLUTE AUTO 0.12 K/mm3 (0.00-0.10); IMMATURE GRAN PERCENT AUTO 1 % (0-1); LYMPHOCYTES ABSOLUTE AUTO 0.94 K/mm3 (0.84-5.20); LYMPHOCYTES PERCENT AUTO 5 % (21-46); MONOCYTES PERCENT AUTO 4 % (4-13); Mean Corpuscular HGB 27.9 pg (26.0-34.0); Mean Corpuscular HGB Conc 31.4 g/dL (31.5-36.5); Mean Corpuscular Volume 89 fL (80-100); Mean Platelet Volume 9.5 fL (9.1-12.4); NEUTROPHILS ABSOLUTE AUTO 17.38 K/mm3 (1.96-9.15); NEUTROPHILS PERCENT AUTO 90 % (41-73); Platelet Count 273 K/mm3 (150-400); RDW Coefficient Variation 14.7 % (11.7-14.2); RDW Standard Deviation 47.6 fL (35.1-46.3); Red Blood Cell Count 4.76 M/mm3 (4.30-5.90); White Blood Cell Count 19.31 K/mm3 (4.00-11.30)
[2019-07-03 09:21] LABS: Anion Gap 6 mmol/L (6-16); Blood Urea Nitrogen 11 mg/dL (8-24); Bun/Creatinine Ratio 16.8 (12.0-20.0); CO2, Blood 33 mmol/L (21-32); Calcium, Blood 8.1 mg/dL (8.5-10.1); Chloride, Blood 98 mmol/L (98-108); Creatinine, Blood 0.66 mg/dL (0.60-1.20); Glomerular Filtration Rate >60 (60-); Glucose, Blood 225 mg/dL (70-99); Potassium, Blood 3.5 mmol/L (3.5-5.5); Sodium, Blood 137 mmol/L (136-145)
--- NOTE | 2019-07-03 18:05 | NUR ---
SHIFT SUMMARY,. PT HAD WILDER IN THE ROOM TODAY, PT TOLERATED THIS WELL. PT WAS HYPOTENSIVE AFTER THE PROCEDURE BUT THIS HAS IMPROVED. PT DENIES PAIN AT THIS TIME. PT HAS BEEN USING BED DUNN TO HAVE BM AND URINAL TO VOID. PT'S AT THE BEDSIDE MOST OF THE SHIFT. CALL LIGHT IN REACH, WILL CONTINUE TO MONITOR UNTIL REPORT IS GIVEN TO ONCOMING RN.
--- NOTE | 2019-07-03 19:55 | NUR ---
ASSUMED CARE OF PT AT 1900 HRS W/ REPORT FROM J[facility]ON AN. PATIENT AWAKE LYING IN BED STATES NO PAIN NO ISSUES. NOTED WITH OUTGOING RN PATIENT'S RECENT C/O WEAKNESS TO RIGHT SIDE AND MUSC DEFICIT, WELL SWELLING TO LEFT ABDOMEN. O2 SATS AT 91% ON ROOM AIR, LUNG SOUNDS COARSE. HEART RATE SINUS TACH AT 105. WILL TREAT PER ORDER AND PROTOCOL, AND CONTINUE TO MONITOR
--- NOTE | 2019-07-03 22:20 | NUR ---
PATIENT REQUESTS DIFFERENT NURSE. WITH THIS ORIENTING NURSE'S PRECEPTOR AVAILABLE, THIS UNIT COMPLIED WITH PATIENT REQUEST. CARE AND REPORT HANDED TO RYDER AN.
--- NOTE | 2019-07-03 23:00 | NUR ---
CARE ASSUMPTION ASSUMED PRIMARY CARE OF PT @ APPROX 2230. PT A&O X4. VSS. MONITOR SHOWS SR, HR 90's. SPO2 > 92% ON 2L NC. PT RECENTLY MEDICATED FOR ABD PAIN PER EMAR. PT REPORTS R ARM AND R LEG STRENGTH SLIGHTLY IMPROVED W/ ABILITY TO NOW LIFT R LEG OFF OF BED AND MOVE TOES W/ FURTHER ROM. PT REPORTS NO BM AFTER LACTULOSE TREATMENT. WILL CONTINUE TO MONITOR AND PROVIDE CARE.
--- NOTE | 2019-07-04 03:43 | NUR ---
RLE PAIN PT C/O 10 R LEG PAIN RELIEVED AFTER ELEVATING RLE ON PILLOW. PT STATING "AMAZING! TO GO FROM 04/09 PAIN TO GONE, NOTHING." PT DENIES FURTHER DISCOMFORT, RESTING IN BED AT THIS TIME.
--- NOTE | 2019-07-04 06:44 | NUR ---
SHIFT SUMMARY PT CONTINUES TO BE A&O X4. R ARM AND R LEG WEAKNESS SLIGHTLY IMPROVING. VSS. MONITOR SHOWS SR-ST, HR 90's-110's. SPO2 > 92% ON 2L NC. ABD CONTINUES TO BE DISTENDED. BT HYPERACTIVE, NO BM THIS SHIFT AFTER PREVIOUS LACTULOSE TREATMENT. WILL CONTINUE TO MONITOR AND PROVIDE CARE UNTIL REPORT OFF TO DAY SHIFT RN.
[2019-07-04 09:35] LABS: BASOPHILS ABSOLUTE AUTO 0.04 K/mm3 (0.00-0.23); BASOPHILS PERCENT AUTO 0 % (0-2); EOSINOPHILS ABSOLUTE AUTO 0.07 K/mm3 (0.00-0.68); EOSINOPHILS PERCENT AUTO 0 % (0-6); Hematocrit 39.6 % (37.0-53.0); Hemoglobin 12.5 g/dL (13.5-17.5); IMMATURE GRAN PERCENT AUTO 0 % (0-1); LYMPHOCYTES ABSOLUTE AUTO 0.95 K/mm3 (0.84-5.20); LYMPHOCYTES PERCENT AUTO 4 % (21-46); MONOCYTES ABSOLUTE AUTO 0.98 K/mm3 (0.16-1.47); MONOCYTES PERCENT AUTO 4 % (4-13); Mean Corpuscular HGB 28.2 pg (26.0-34.0); Mean Corpuscular HGB Conc 31.6 g/dL (31.5-36.5); Mean Corpuscular Volume 89 fL (80-100); Mean Platelet Volume 9.5 fL (9.1-12.4); NEUTROPHILS ABSOLUTE AUTO 21.22 K/mm3 (1.96-9.15); NEUTROPHILS PERCENT AUTO 91 % (41-73); Platelet Count 286 K/mm3 (150-400); RDW Coefficient Variation 14.8 % (11.7-14.2); RDW Standard Deviation 47.6 fL (35.1-46.3); Red Blood Cell Count 4.43 M/mm3 (4.30-5.90); White Blood Cell Count 23.36 K/mm3 (4.00-11.30)
--- NOTE | 2019-07-04 17:22 | NUR ---
Pt visit this evening. Pt resting in bed upon arrival. Pt reports a tolerable 1/10 pain in his abdomen. Pt appears moderately dyspneic as evidenced by work of breathing. Listened as Pt reports the different things blaze on with him from CVA, abscess, and liver cell carcinoma. Asked if he is feeling overwhelmed or processed information yet. Pt states he doesn't think it has sinked in yet. Suggested to write down all questions and concerns in order to cover all basis. Pt appears to be more dyspneic and lethargic as conversation continues. Offered to end visit and come back tomorrow and Pt is agreeable. Pt expresses appreciation of visit. Spoke with Pt's bedside JUVE Lozano and discussed case. Palliative Care will F/U for therapeutic visits and Advanced Care Planning.
--- NOTE | 2019-07-04 17:35 | NUR ---
Late Entry from previous note. Did begin the conversation regarding the importance of planning for possible future. Suggested the importance of planning for the possibility of assistance with care pending recovery of stroke. Pt states his should be very help ful and if necassary he can hire caregivers.
--- NOTE | 2019-07-04 17:45 | NUR ---
PT WITH NO REAL CHANGES T/O THIS SHIFT. PT REMAINS ALERT ANSWERING QUESTIONS. PT REPORTED PAIN 2/10 THIS AM WHICH WAS RESOLVED WITH MS CONTIN. PT WITH WET NONPRODUCTIVE COUGH. SKIN PWD AND INTACT. FAMILY HAS BEEN AT BEDSIDE INTERMITENTLY T/O THE DAY. VSS.
--- NOTE | 2019-07-04 21:02 | NUR ---
CARE ASSUMPTION PT A&O X4. UPON ENTERING ROOM PT STATES "LOOK AT THIS" AND LIFTS HIS R LEG ENTIRELY UP OFF THE BED AND HIGH INTO THE AIR. PT EXCITED ABOUT RETURNING STRENGTH IN R LEG BUT REPORTS NO IMPROVEMENT W/ R ARM. R ARM CONTINUES TO BE FLACCID AT PT'S SIDE. PT ABLE TO EXTEND FINGERS ON R HAND EXCEPT FOR R PINKY AND R RING FINGER. PT REPORTS NO BM AFTER LACTULOSE TX TODAY. PT THEN REQUESTING PRUNE JUICE AND ATTENDS TO WEAR JUST IN CASE, STATING "USUALLY WHEN I DO HAVE TO GO IT'S URGENT." PT ALSO REPORTS "IT'S NORMAL FOR ME TO GO A FEW DAYS W/OUT A BOWEL MOVEMENT, BUT THIS HAS BEEN LONGER THAN NORMAL." PT STATES IT'S BEEN "A WHILE" SINCE LAST BM. DOCUMENTATION SHOWS LAST BM 07/02/19. PT PROVIDED W/ PRUNE JUICE AND ATTENDS PER REQUEST. PT REPORTING 5/10 ABD PAIN, MEDICATED PER PT REQUEST/EMAR. ABD CONDINTUES TO BE DISTENDED. NORMOACTIVE BT AT THIS TIME. VSS. MONITOR SHOWS ST, HR 100-110. LUNG SOUNDS COARSE, DIM IN BASES. SPO2 > 92% ON 2L NC. WILL CONTINUE TO MONITOR AND PROVIDE CARE.
--- NOTE | 2019-07-04 21:30 | NUR ---
CBG ELEVATED PT'S CBG ELEVATED THIS EVENING W/ NO HS INSULIN COVERAGE ORDERED. DISCUSSED INSULIN COVERAGE W/ PT W/ PT STATEMENT OF "I DON'T DO INSULIN AT NIGHT BUT MY BLOOD SUGAR ISN'T USUALLY THIS HIGH, BUT NO, I DON'T WANT TO MESS WITH IT RIGHT NOW." PT EDUCATED ON INSULIN COVERAGE AND ENCOURAGED TO FURTHER DISCUSS TREATMENT W/ DOCTOR DURING DOCTOR ROUNDING. WILL CONTINUE TO MONITOR AND PROVIDE CARE.
[2019-07-05 04:32] LABS: BASOPHILS ABSOLUTE AUTO 0.06 K/mm3 (0.00-0.23); BASOPHILS PERCENT AUTO 0 % (0-2); EOSINOPHILS ABSOLUTE AUTO 0.08 K/mm3 (0.00-0.68); EOSINOPHILS PERCENT AUTO 0 % (0-6); Hematocrit 42.1 % (37.0-53.0); Hemoglobin 12.9 g/dL (13.5-17.5); IMMATURE GRAN PERCENT AUTO 0 % (0-1); LYMPHOCYTES ABSOLUTE AUTO 1.49 K/mm3 (0.84-5.20); LYMPHOCYTES PERCENT AUTO 6 % (21-46); MONOCYTES ABSOLUTE AUTO 1.06 K/mm3 (0.16-1.47); MONOCYTES PERCENT AUTO 4 % (4-13); Mean Corpuscular HGB 28.1 pg (26.0-34.0); Mean Corpuscular HGB Conc 30.6 g/dL (31.5-36.5); Mean Platelet Volume 9.8 fL (9.1-12.4); NEUTROPHILS PERCENT AUTO 89 % (41-73); Platelet Count 266 K/mm3 (150-400); RDW Standard Deviation 49.5 fL (35.1-46.3); Red Blood Cell Count 4.59 M/mm3 (4.30-5.90); White Blood Cell Count 24.69 K/mm3 (4.00-11.30)
[2019-07-05 04:37] LABS: Mean Corpuscular Volume 92 fL (80-100)
[2019-07-05 04:48] LABS: Anion Gap 4 mmol/L (6-16); Blood Urea Nitrogen 10 mg/dL (8-24); Bun/Creatinine Ratio 14.3 (12.0-20.0); CO2, Blood 34 mmol/L (21-32); Calcium, Blood 8.6 mg/dL (8.5-10.1); Chloride, Blood 97 mmol/L (98-108); Glomerular Filtration Rate >60 (60-); Glucose, Blood 222 mg/dL (70-99); Magnesium, Blood 1.8 mg/dL (1.6-2.4); Potassium, Blood 4.5 mmol/L (3.5-5.5); Sodium, Blood 135 mmol/L (136-145)
--- NOTE | 2019-07-05 05:50 | NUR ---
SHIFT SUMMARY PT CONTINUES TO BE A&O X4. VSS. MONITOR SHOWS SR-ST, HR 90's-110. SPO2 > 92% ON 2L NC. PT C/O INTERMITTENT ABD PAIN, MEDICATED PER PT REQUEST/EMAR. R LEG STRENGTH IMPROVED, PT ENCOURAGED TO ATTEMPT GETTING UP OUT OF BED W/ STAFF DURING DAY. R ARM CONTINUES TO BE FLACCID AT PT'S SIDE. ELEVATED EVENING CBG WITH NO HS INSULIN COVERAGE, SEE PREVIOUS NOTE FOR DETAILS. WILL CONTINUE TO MONITOR AND PROVIDE CARE UNTIL REPORT OFF TO DAY SHIFT RN.
--- NOTE | 2019-07-05 08:19 | NUR ---
AM NOTE... ASSUMED CARE OF PT APROX 0700. PT IS A&Ox4. PT WAS ADMITTED FOR ABD ABCESS, W/RECENT DIAGNOSIS OF LIVER CA W/POSSIBLE CRYSTAL TO THE LUNGS. PT'S VS HAVE BEEN STABLE. PT DENIES CHEST PAIN/PRESSURE OR N/V. PT IS ON 2LNC WITH O2 SATS >93%. PT'S EDEMA HAS IMPROVED FROM PREVIOUS SHIFT. THERE IS TRACE EDEMA TO HIS BLE, AND TRACE EDEMA TO HIS TORSO/ABD AREA. L/S COARSE RALES ON THE RIGHT AND DIM COARSNESS ON THE LEFT. PT HAS BEEN EDUCATED AND ENCOURAGED TO USE THE I.S. AND COUGH/DEEP BREATH. CALL LIGHT IN REACH, WILL CONTINUE TO MONITOR.
[2019-07-05 09:09] LABS: International Normalized Ratio 1.35; Prothrombin Time Results 14.2 Sec (9.7-11.5)
[2019-07-05 11:06] LABS: HBSAG SCREEN Negative (Negative); HEP B CORE AB, TOT Negative (Negative); HEP C VIRUS AB <0.1 (0.0-0.9)
--- NOTE | 2019-07-05 19:33 | NUR ---
SHIFT SUMMARY... NO ACUTE NEGATIVE CHANGES NOTED THIS SHIFT. PT'S VS HAVE BEEN STABLE. PT HAS BEEN MEDICATED FOR PAIN AND ANXEITY PER EMAR. PT WORKED WITH PT/OT TODAY. PT'S AT THE SIDE OF THE BED. CALL LIGHT IN REACH WILL CONTINUE TO MONITOR.
--- NOTE | 2019-07-05 21:00 | NUR ---
Morrison of Care: Care assumed at 1900hr. Patient alert and oriented x4. Denies pain, discomfort, SOB, or dyspnea. VSS, O2-93-96% on 2L/NC. Sitting upright tin bed, sleeping when not stimulated by staff, but rouses easily to verbal stimuli. Rt arm is nearly completely flacid, only able to slightly filler block inserter remover fingers. Rt leg is very weak, but patient able to lift leg from bed. Weak but nearly normal movement to lt extremities. Uses urinal in bed to void without difficulty. Peripheral IV x1 to lt FA patent and intact. Call light in reach, makes needs known. Will continue to monitor.
[2019-07-06 03:48] LABS: BASOPHILS ABSOLUTE AUTO 0.04 K/mm3 (0.00-0.23); BASOPHILS PERCENT AUTO 0 % (0-2); EOSINOPHILS ABSOLUTE AUTO 0.14 K/mm3 (0.00-0.68); EOSINOPHILS PERCENT AUTO 1 % (0-6); Hematocrit 36.5 % (37.0-53.0); Hemoglobin 11.1 g/dL (13.5-17.5); IMMATURE GRAN ABSOLUTE AUTO 0.11 K/mm3 (0.00-0.10); IMMATURE GRAN PERCENT AUTO 1 % (0-1); LYMPHOCYTES PERCENT AUTO 8 % (21-46); MONOCYTES ABSOLUTE AUTO 1.08 K/mm3 (0.16-1.47); MONOCYTES PERCENT AUTO 6 % (4-13); Mean Corpuscular HGB 27.9 pg (26.0-34.0); Mean Corpuscular HGB Conc 30.4 g/dL (31.5-36.5); Mean Corpuscular Volume 92 fL (80-100); Mean Platelet Volume 9.7 fL (9.1-12.4); NEUTROPHILS ABSOLUTE AUTO 16.42 K/mm3 (1.96-9.15); NEUTROPHILS PERCENT AUTO 85 % (41-73); Platelet Count 226 K/mm3 (150-400); RDW Coefficient Variation 14.8 % (11.7-14.2); RDW Standard Deviation 49.8 fL (35.1-46.3); Red Blood Cell Count 3.98 M/mm3 (4.30-5.90); White Blood Cell Count 19.39 K/mm3 (4.00-11.30)
[2019-07-06 04:05] LABS: International Normalized Ratio 1.28; Prothrombin Time Results 13.5 Sec (9.7-11.5)
[2019-07-06 04:13] LABS: Alanine Aminotransfer (ALT/SGP 9 U/L (12-78); Albumin, Blood 1.5 g/dL (3.4-5.0); Albumin/Globulin Ratio 0.3 (0.8-1.8); Alk Phos 69 U/L (50-136); Anion Gap 2 mmol/L (6-16); Aspartate Aminotrans (AST/SGOT 38 U/L (12-37); Bilirubin, Total 0.5 mg/dL (0.1-1.0); Blood Urea Nitrogen 10 mg/dL (8-24); Bun/Creatinine Ratio 15.6 (12.0-20.0); CO2, Blood 38 mmol/L (21-32); Calcium, Blood 8.2 mg/dL (8.5-10.1); Chloride, Blood 97 mmol/L (98-108); Creatinine, Blood 0.64 mg/dL (0.60-1.20); Glomerular Filtration Rate >60 (60-); Glucose, Blood 190 mg/dL (70-99); Potassium, Blood 4.6 mmol/L (3.5-5.5); Sodium, Blood 137 mmol/L (136-145); Total Protein, Blood 6.5 g/dL (6.4-8.2)
--- NOTE | 2019-07-06 05:44 | NUR ---
Shift Summary: Patient slept well throughout shift. Easily rouses to verbal stimuli, oriented x4 when awake. Continues to deny pain, discomfort, SOB, dyspnea. VSS, O2-98-100% on 1-2L/NC. Peripheral IV to lt FA remains patent and intact, infusing without difficulty. Voided x1 in urinal, also x1 incontinent void. No changes to ABD noted, BT's remain hypoactive, with moderate distention. ABD soft, c/o pain only to rt lower and upper sides. Call light in reach, makes needs known. Sleeping at this time. Will continue to monitor until report to day shift RN.
--- NOTE | 2019-07-06 07:48 | NUR ---
AM NOTE.... ASSUMED CARE OF PT APROX 0700. PT IS A&Ox4. PT'S VS STABLE AT THIS TIME. PT IS C/O OF INCREASED PAIN, PT WAS MEDICATED PER EMAR AND REPOSITIONED. DURING REPOSITIONING PT MADE THE STATEMENT "YOU ALL SHOULD JUST LET ME ." PT'S EMOTIONAL STATUS WAS DIFFERENT THAN YESTERDAY, PT APPEARED MORE DISTRESSED AND DEPRESSED AND ANGERY. PT WAS ALSO C/O OF PAIN TO HIS COCCYX, PT HAS BEEN REFUSING REPOSITIONING DURING ROUNDING, HE HAS BEEN EDUCATED ON SKIN BREAKDOWN AND PRESSURE ULCER PREVENTION. CALL LIGHT IN REACH, WILL CONTINUE TO MONITOR.
--- NOTE | 2019-07-06 11:45 | NUR ---
PT GAVE ME PERMISSION TO HELP WITH HIS CARE 07/06/2019
--- NOTE | 2019-07-06 18:15 | NUR ---
SHIFT SUMMARY. NO ACUTE NEGATIVE CHANGES NOTED THIS SHIFT. PT'S VS HAVE BEENS STABLE. PT WORKED WITH PT/OT AND SAT ON THE SIDE OF THE BED. PT WAS C/O OF COCCYX HURTING, AND REQUESTED THE PROTECTIVE MEPILEX TO BE REMOVED. PT'S COCCYX WAS RED WITH AN AREA BY THE COCCYX THAT WAS UNBLANCHABLE. PT EDUCATED MULTIPLE TIMES ON PRESSURE ULCER PREVENTION BUT PT HAS BEEN REFUSING REPOSITIONING. PT'S IV ANTIBIOTICS STOPED PER DR. GUTIERREZ. CALL LIGHT IN REACH, WILL CONTINUE TO MONITOR UNTIL REPORT IS GIVEN TO ONCOMING RN.
--- NOTE | 2019-07-07 02:55 | NUR ---
ASSUMED CARE AT 1900. WHEN HS MEDS DUE REVIEWED W/ PATIENT ABOUT SLEEPINESS AND MANY MEDS TO BE GIVEN THAT WOULD BE MORE SEDATING. ANNOYED BY THIS DISCUSSION SINCE REPORTING HE HAS BEEN TAKING THESE MEDS FOR 13 YR. REVIEWED SOME HISTORICAL PHARMACY LISTS AND REVIEWED THIS W/ CHARGE NURSE [place] AND STAFF AGREE TO GIVE ROUTINE HS MEDS . W/ ANY REPOSITIONING PAIN IS OBVIOUS AND MOSTLY ABD WHEN NOT BEING MOVED AND RT SHOULDER AND NECK W/ ANY SLIGHT REPOSITIONING. THIS IS OCCURRING BEFORE AND AFTER ALL MEDS GIVEN. MUCH OF BASELINE POSSIBLE AND TOLERABLE. TRYING A HEATING PAD FOR NECK/ FAIR ASSIST. NO FURTHER BREAKTHROUGH PAIN MED REQUESTED. SLEEPING WELL BETWEEN REPOSITIONING. INCONTINENT OF SOFT BROWN STOOL AND CHOSE TO DIVERT USE OF URINAL AND REFUSED STAFF HELP, SO VOIDED IN ATTENDS W/ STOOL. SEVERE WEAKNESS AND PAINFUL MOANING IN ANY SLIGHT POSITIONING. NO SKIN BREAK ON COCCYX BUT RED. PROTECTIVE UNGT APPLIED. RED RASHY SKIN OF SCROTUM AND LT UPPER INNER THIGH. ATTEMPTS TO LIFT RT ARM NOTED A GROSS MOTOR MOVE OF SHOULDER BUT UNABLE TO LIFT RT ARM AND A VERY SLIGHT SQUEEZE AND FINGER MOVEMENT TO REQUEST. RT LEG FULL ROM BUT SEVERE WEAKNESS. LT EXTREMITIES WNL ROM. SUCH SEVERE WEAKNESS ONLY WHISPERS. CONVERSIVE TO OFFER REQUESTS AND ORIENTED. POP SICLES TAKEN PER SELF W/ ASPIRATION PRECAUTIONS. . PROTECTIVE UNGT APPLIED.
[2019-07-07 04:08] LABS: BASOPHILS ABSOLUTE AUTO 0.03 K/mm3 (0.00-0.23); BASOPHILS PERCENT AUTO 0 % (0-2); EOSINOPHILS ABSOLUTE AUTO 0.12 K/mm3 (0.00-0.68); EOSINOPHILS PERCENT AUTO 1 % (0-6); Hemoglobin 11.4 g/dL (13.5-17.5); IMMATURE GRAN ABSOLUTE AUTO 0.07 K/mm3 (0.00-0.10); IMMATURE GRAN PERCENT AUTO 0 % (0-1); LYMPHOCYTES ABSOLUTE AUTO 1.56 K/mm3 (0.84-5.20); LYMPHOCYTES PERCENT AUTO 10 % (21-46); MONOCYTES ABSOLUTE AUTO 0.92 K/mm3 (0.16-1.47); MONOCYTES PERCENT AUTO 6 % (4-13); Mean Corpuscular HGB 27.9 pg (26.0-34.0); Mean Corpuscular HGB Conc 30.8 g/dL (31.5-36.5); Mean Corpuscular Volume 91 fL (80-100); Mean Platelet Volume 9.6 fL (9.1-12.4); NEUTROPHILS ABSOLUTE AUTO 13.69 K/mm3 (1.96-9.15); NEUTROPHILS PERCENT AUTO 84 % (41-73); Platelet Count 207 K/mm3 (150-400); RDW Coefficient Variation 14.9 % (11.7-14.2); RDW Standard Deviation 48.9 fL (35.1-46.3); Red Blood Cell Count 4.09 M/mm3 (4.30-5.90); White Blood Cell Count 16.39 K/mm3 (4.00-11.30)
[2019-07-07 04:21] LABS: International Normalized Ratio 1.27; Prothrombin Time Results 13.4 Sec (9.7-11.5)
--- NOTE | 2019-07-07 06:40 | NUR ---
NO CHANGE IN ABOVE. DOZING CALM AROUSABLE, ORIENTED,. PAIN AT BASELINE AND COMFORTABLE UNLESS REPOSITIONED. CARE TAKEN AND PT ALLOWED PRESSURE OFF COCCYX W/ TURNING SCHEDULE. HOLDS OWN URINAL W/ INITIAL HELP/ NO FURTHER INCONT BM.
[2019-07-07 08:08] LABS: HIV SCREEN 4TH GENERATION WRFX Non Reactive (Non Reactive)
--- NOTE | 2019-07-07 08:25 | NUR ---
AM NOTE... ASSUMED CARE OF PT APROX 0700, PT IS A&Ox4. PT'S BREATHING HAS CHANGED SINCE YESTERDAY, L/S INCREASED COARNESS AND RHONCHI SCATTERED T/O. PT'S O2 WAS ALSO INCREASED FROM 2L NC TO 3L WITH O2 SATS AT 92%. PT'S ABD IS STILL DISTENDED, BUT SOFT AND TENDER TO PALP ON THE RIGHT SIDE. PT HAS HAD SOME INCREASED INCONT EPISODES OF URINE AND BOWEL. PT'S AT THE BEDSIDE. CALL LIGHT IN REACH WILL CONTINUE TO MONITOR.
[2019-07-07 11:11] LABS: Adenovirus F 40/41 Not Detected (NOT DETECT); Astrovirus Not Detected (NOT DETECT); Campylobacter Sp Not Detected (NOT DETECT); Cryptosporidium Not Detected (NOT DETECT); Cyclospora Cayetanensis Not Detected (NOT DETECT); E. Coli O157 Not Detected (NOT DETECT); Entamoeba Histolytica Not Detected (NOT DETECT); Enteroaggregative E. coli-EAEC Not Detected (NOT DETECT); Enteropathogenic E. coli-EPEC Not Detected (NOT DETECT); Enterotoxigenic E. coli-ETEC Not Detected (NOT DETECT); Giardia Lamblia Not Detected (NOT DETECT); Norovirus GI/GII Not Detected (NOT DETECT); Plesiomonas Shigelloides Not Detected (NOT DETECT); Rotavirus A Not Detected (NOT DETECT); Salmonella Sp Not Detected (NOT DETECT); Sapovirus Not Detected (NOT DETECT); Shiga Toxin-prod E. coli-STEC Not Detected (NOT DETECT); Shigella/Enteroin E. coli-EIEC Not Detected (NOT DETECT); Vibrio Cholerae Not Detected (NOT DETECT); Vibrio Sp Not Detected (NOT DETECT); Yersinia Enterocolitica Not Detected (NOT DETECT)
--- NOTE | 2019-07-07 17:52 | NUR ---
SHIFT SUMMARY. NO ACUTE NEGATIVE CHANGES NOTED THIS SHIFT. PT'S VS HAVE BEEN STABLE. PT HAS BEEN MEDICATED FOR PAIN AND ANXEITY PER EMAR. PT'S AT THE BEDSIDE MOST OF THE SHIFT. PT HAD 2 UNFORMED/LOOSE STOOLS THIS SHIFT. THIS WAS SENT TO LAB AND PT IN ISOLATION. PT WORKED WITH PT/OT THIS SHIFT. PT WAS GOTTEN UP INTO THE RECLINER CHAIR TODAY USING THE LIFT, PT TOLERATED THE LIFT WELL AND STATED " THIS FEELS REALLY GOOD ACTUALLY." PT'S BREATHING IMPROVED GREATLY WHILE UP IN THE CHAIR. CALL LIGHT IN REACH, WILL CONTINUE TO MONITOR UNTIL REPORT IS GIVEN TO ONCOMING RN.
[2019-07-08 04:06] LABS: Alanine Aminotransfer (ALT/SGP 18 U/L (12-78); Albumin, Blood 1.6 g/dL (3.4-5.0); Albumin/Globulin Ratio 0.3 (0.8-1.8); Alk Phos 81 U/L (50-136); Anion Gap 3 mmol/L (6-16); Aspartate Aminotrans (AST/SGOT 63 U/L (12-37); BASOPHILS ABSOLUTE AUTO 0.03 K/mm3 (0.00-0.23); BASOPHILS PERCENT AUTO 0 % (0-2); Bilirubin, Total 0.5 mg/dL (0.1-1.0); Blood Urea Nitrogen 11 mg/dL (8-24); Bun/Creatinine Ratio 18.5 (12.0-20.0); CO2, Blood 35 mmol/L (21-32); Calcium, Blood 8.5 mg/dL (8.5-10.1); Chloride, Blood 97 mmol/L (98-108); EOSINOPHILS ABSOLUTE AUTO 0.16 K/mm3 (0.00-0.68); EOSINOPHILS PERCENT AUTO 1 % (0-6); Globulin, Blood 5.2 g/dL (2.2-4.0); Glomerular Filtration Rate >60 (60-); Glucose, Blood 244 mg/dL (70-99); Hematocrit 35.1 % (37.0-53.0); Hemoglobin 10.9 g/dL (13.5-17.5); IMMATURE GRAN ABSOLUTE AUTO 0.06 K/mm3 (0.00-0.10); IMMATURE GRAN PERCENT AUTO 0 % (0-1); LYMPHOCYTES ABSOLUTE AUTO 1.35 K/mm3 (0.84-5.20); LYMPHOCYTES PERCENT AUTO 10 % (21-46); MONOCYTES ABSOLUTE AUTO 0.83 K/mm3 (0.16-1.47); MONOCYTES PERCENT AUTO 6 % (4-13); Mean Corpuscular HGB 27.7 pg (26.0-34.0); Mean Corpuscular HGB Conc 31.1 g/dL (31.5-36.5); Mean Corpuscular Volume 89 fL (80-100); NEUTROPHILS ABSOLUTE AUTO 11.77 K/mm3 (1.96-9.15); NEUTROPHILS PERCENT AUTO 83 % (41-73); NRBC ABSOLUTE 0.02 K/mm3 (0.00-0.02); NRBC Auto 0.1 /100 WBC (0.0-0.2); Potassium, Blood 5.1 mmol/L (3.5-5.5); RDW Coefficient Variation 14.6 % (11.7-14.2); RDW Standard Deviation 48.4 fL (35.1-46.3); Red Blood Cell Count 3.93 M/mm3 (4.30-5.90); Sodium, Blood 135 mmol/L (136-145); Total Protein, Blood 6.8 g/dL (6.4-8.2)
[2019-07-08 04:07] LABS: Mean Platelet Volume 10.3 fL (9.1-12.4); Platelet Count 182 K/mm3 (150-400)
--- NOTE | 2019-07-08 06:00 | NUR ---
ASSUMED CARE AT 0100. SEE ASSESSMENT REVIEW. SAME NEURO RT ARM FLACCID W/ SLIGHT HAND GRASP AND GROSS MOTOR AT RT SHOULDER TO REQUEST. RT LEG SEVERE WEAKNESS BUT FULL ROM. ORIENTED AND ALERT TO TAKE POPSICLES AND HELP IN SERVING SELF. VOIDED IN URINAL W/ SOME HELP/ REFUSES MEPILEX ON COCCYX NO SKIN BREAK NOTED. ONLY RED. ENC TO MOVE W/ ACTIVE ROM AND VERY DIFFICULT W/ CHRONIC PAIN. ABD PAIN,.REPORTS COMES AND GOES. SR ST. RR ALWAYS 32. AT REST , ASLEEP,. OR AWAKE.
[2019-07-08] MEDS ORDERED: ASPI81CH PO (14:36)
[2019-07-08] MEDS ORDERED: ATORVASTATIN CA40 MG PO (14:36)
[2019-07-08] MEDS ORDERED: CLOP75 PO (14:37)
[2019-07-08] MEDS ORDERED: Humulin R500 UNIT/1 SC (14:43)
[2019-07-08] MEDS ORDERED: METOPROLOL TA37.5 MG PO (14:44)
[2019-07-08] MEDS ORDERED: MELATONIN5 M1 PO (14:44)
[2019-07-08] MEDS ORDERED: LACT PO (14:44)
[2019-07-08] MEDS ORDERED: MIRT15 PO (14:45)
[2019-07-08] MEDS ORDERED: FURO40 PO (14:46)
[2019-07-08] MEDS ORDERED: Nystatin15 GM TOP (14:46)
== END 2019-07-08 15:18 | DRG 871 ==
LOC: ER 11:57 → PCU 16:35
PROVIDERS: Emergency Medicine; Hospitalist; Internal Medicine; Internal Medicine Gastroenterology; Internal Medicine Infectious Disease; Physician Assistant; Surgery; ADMIT Family Medicine
PROC: 0T9130Z Drainage of Left Kidney with Drainage Device, Percutaneous Approach (ICD-10-PCS; principal; 2019-06-24)
PROC: 079P3ZZ Drainage of Spleen, Percutaneous Approach (ICD-10-PCS; 2019-06-24)
DX: A41.51 Sepsis due to Escherichia coli [E. coli] (principal); I63.9 Cerebral infarction, unspecified; N15.1 Renal and perinephric abscess; E87.1 Hypo-osmolality and hyponatremia; S36.029A Unspecified contusion of spleen, initial encounter; R64 Cachexia; C22.0 Liver cell carcinoma; K56.7 Ileus, unspecified; R65.20 Severe sepsis without septic shock; D73.3 Abscess of spleen; Z90.49 Acquired absence of other specified parts of digestive tract; I10 Essential (primary) hypertension; G20 Parkinson's disease; F32.9 Major depressive disorder, single episode, unspecified; E11.42 Type 2 diabetes mellitus with diabetic polyneuropathy; Z87.891 Personal history of nicotine dependence; G54.5 Neuralgic amyotrophy; F41.9 Anxiety disorder, unspecified; E87.6 Hypokalemia; R91.1 Solitary pulmonary nodule; Z68.22 Body mass index [BMI] 22.0-22.9, adult; J43.9 Emphysema, unspecified; Z90.411 Acquired partial absence of pancreas; K70.30 Alcoholic cirrhosis of liver without ascites; Z79.4 Long term (current) use of insulin; Y92.9 Unspecified place or not applicable
CPT/HCPCS: 0097U; 36415; 49406; 70450; 71045; 71046; 71260; 74176; 74177; 74183; 80048; 80053; 80069; 81001; 82105; 82728; 82947; 83540; 83550; 83605; 83690; 83735; 84484; 85025; 85610; 85730; 86317; 86704; 86708; 86803; 87040; 87070; 87075; 87077; 87086; 87186; 87205; 87324; 87340; 87389; 87449; 90686; 93005; 93010; 93306; 93312; 93325; 93880; 94640; 94760; 96365-59; 97110; 97112; 97162; 97166; 97168; 97530; 97535; 99152; 99285-25; A9270; A9581; G0008; J0696; J1650; J1815; J1940; J2060; J2250; J2310; J2543; J3010; J7030; J7040; J7050; J7060; J7120; Q9967